=== PATIENT | female | born 1995 | race Caucasian/White ===

== ENCOUNTER 2017-09-15 16:51 | Emergency (ER) | payer MEDICAID, OTHER ==
[~2017-09-15] VITALS: Ht 160 cm; Wt 99.8 kg
[2017-09-15 17:34] LABS: BILIRUBIN,URINE NEGATIVE (NEGATIVE); CLARITY,URINE CLEAR; COLOR,URINE YELLOW; GLUCOSE, URINE (UA) NEGATIVE (NEGATIVE); KETONES,URINE NEGATIVE (NEGATIVE); LEUKOCYTE ESTERASE ,URINE 3+ (NEGATIVE); NITRITE,URINE NEGATIVE (NEGATIVE); PH,URINE 5 (5-9); PROTEIN,URINE NEGATIVE (NEGATIVE); UROBILINOGEN,URINE NORMAL (NORMAL)
[2017-09-15 17:41] LABS: BACTERIA,URINE FEW /HPF
[2017-09-15 18:37] LABS: BASOPHILS % (AUTO) 0 % (0-10); EOSINOPHILS # (AUTO) 0.2 10^3/uL (0.0-0.3); EOSINOPHILS % (AUTO) 2 % (0-10); HEMATOCRIT 38 % (35-52); HEMOGLOBIN 13.3 G/DL (11.5-16.0); LYMPHOCYTES # (AUTO) 3.6 X 10^3 (1.0-4.0); LYMPHOCYTES % (AUTO) 32 % (12-44); MEAN CORPUSCULAR HEMOGLOBIN 31 PG (25-34); MEAN CORPUSCULAR HGB CONC 35 G/DL (32-36); MEAN CORPUSCULAR VOLUME 88 FL (80-99); MEAN PLATELET VOLUME 9.9 FL (7.4-10.4); MONOCYTES # (AUTO) 0.5 X 10^3 (0.0-1.0); MONOCYTES % (AUTO) 4 % (0-12); NEUTROPHILS # (AUTO) 6.9 X 10^3 (1.8-7.8); NEUTROPHILS % (AUTO) 62 % (42-75); PLATELET COUNT 197 10^3/uL (130-400); RED BLOOD COUNT 4.33 10^6/uL (4.35-5.85); RED CELL DISTRIBUTION WIDTH 12.6 % (10.0-14.5); WHITE BLOOD COUNT 11.2 10^3/uL (4.3-11.0)
--- NOTE | 2017-09-15 18:48 | Diagnostic Imaging Report ---
PROCEDURE: US OB single fetus <14 wks. TECHNIQUE: Multiple real-time grayscale images were obtained over the gravid uterus in various projections. INDICATION: Cramping. FINDINGS: Huffman intrauterine gestation is present with a heart rate of 156 beats per minute. There is a miguel-sac subchorionic hemorrhage, measuring 2.1 x 1.5 x 0.5 cm eccentric to the right. Followup of that hemorrhage is appropriate. Septated cyst in the left ovary measured 2.4 cm. There is no pelvic free fluid. There is no evidence for extrauterine gestation. The crown-rump length of the gestation measures a length compatible with age of 7 weeks 4 days, sonographic date of confinement 04/30/2018. IMPRESSION: 7 week 4 day huffman viable IUP with small to moderate miguel-sac subchorionic hemorrhage, eccentric to the right, warrants followup. Likely involuting follicle in the left ovary. No evidence for free fluid. Dictated by: Dictated on workstation # [id number]
[2017-09-15 18:50] LABS: ALANINE AMINOTRANSFERASE 11 U/L (0-55); ALBUMIN 4.3 GM/DL (3.2-4.5); ALKALINE PHOSPHATASE 73 U/L (40-136); BILIRUBIN,TOTAL 0.3 MG/DL (0.1-1.0); BUN/CREATININE RATIO 16; CALCIUM 9.8 MG/DL (8.5-10.1); CARBON DIOXIDE 25 MMOL/L (21-32); CHLORIDE 102 MMOL/L (98-107); CREATININE SERUM 0.68 MG/DL (0.60-1.30); GFR ESTIMATED > 60; GLUCOSE 75 MG/DL (70-105); POTASSIUM 3.8 MMOL/L (3.6-5.0); SODIUM 136 MMOL/L (135-145); TOTAL PROTEIN 7.9 GM/DL (6.4-8.2)
--- NOTE | 2017-09-15 19:01 | ED GU-Female ---
General Chief Complaint: -Female Stated Complaint: CRAMPING;7WKS Nursing Triage Note: c/o vaginal spotting. States she is 7 weeks . Has appt with Dr. Conklin at [facility] in 2 weeks. Nursing Sepsis Screen: No Definite Risk Source: patient Exam Limitations: no limitations History of Present Illness Date Seen by Provider: Sep 15, 2017 Time Seen by Provider: 19:01 Initial Comments 22-year-old female patient presents to the emergency department with complaints of vaginal spotting last night. Patient states she is scheduled to see Dr. Burch at [facility] in 2 weeks. States she is approximately 7 weeks . Timing/Duration: yesterday, gone now Severity/Quality: mild, cramping Location: suprapubic, vaginal (vaginal spotting) Radiation: none Activities at Onset: none Prior Genitourinary Problems: none Sexual [place] History: less than 2 months ago, single partner Allergies and Home Medications Home Medications Nitrofurantoin Monohyd/M-Cryst 100 Mg Capsule, 1 TAB PO BID Prescribed by: JEANETTE FERRER on 09/15/171916 Constitutional: No chills, No dizziness, No fever, No malaise EENTM: no symptoms reported Respiratory: no symptoms reported Cardiovascular: no symptoms reported Gastrointestinal: No abdominal pain (suprapubic cramping last night. Denies abdominal pain today.), No constipation, No diarrhea, No nausea, No vomiting Genitourinary: see HPI, denies discharge, denies dysuria, denies frequency, denies flank pain, pain (suprapubic abdominal cramping) Musculoskeletal: no symptoms reported Skin: no symptoms reported Psychiatric/Neurological: No Symptoms Reported All Other Systemes Reviewed Negative Unless Noted: Yes (Negative excepted noted.) Past Lskctfi-Orswvw-Tmvuwu Hx Patient Social History Alcohol Use: Denies Use Recreational Drug Use: No Smoking Status: Never a Smoker Recent Foreign Travel: No Contact w/Someone Who Travel: No Recent Infectious Disease Expo: No Surgeries History of Surgeries: Yes Surgeries: Appendectomy, Gallbladder Respiratory History of Respiratory Disorde: No Cardiovascular History of Cardiac Disorders: No Neurological History of Neurological Disord: No Reproductive System : Yes Sexually Transmitted Disease: No HIV/AIDS: No Female Reproductive Disorders: Denies Genitourinary History of Genitourinary Disor: No Gastrointestinal History of Gastrointestinal Di: No Musculoskeletal History of Musculoskeletal Dis: No Endocrine History of Endocrine Disorders: No HEENT History of HEENT Disorders: No Cancer History of Cancer: No Psychosocial History of Psychiatric Problem: No Integumentary History of Skin or Integumenta: No Blood Transfusions History of Blood Disorders: No Reviewed Nursing Assessment Reviewed/Agree w Nursing PMH: Yes Family Medical History Significant Family History: No Pertinent Family Hx Physical Exam Vital Signs Vital Signs - First Documented 09/15/17 17:13 Temp 97.7 Pulse 72 Resp 16 B/P (MAP) 131/81 (98) Pulse Ox 98 O2 Delivery Room Air Capillary Refill : Less Than 3 Seconds General Appearance: WD/WN, no apparent distress HEENT: PERRL/EOMI, pharynx normal Neck: supple, normal inspection Cardiovascular: normal peripheral pulses, regular rate, rhythm, no edema, no murmur Respiratory: lungs clear, normal breath sounds, no respiratory distress, no accessory muscle use Gastrointestinal: normal bowel sounds, non tender, soft, no organomegaly, No distended Back: normal inspection, no CVA tenderness Extremities: no pedal edema, normal capillary refill Neurologic/Psychiatric: alert, normal mood/affect, oriented x 3 Skin: normal color, warm/dry Progress/Results/Core Measures Suspected Sepsis Recent Fever Within 48 Hours: No Infection Criteria Present: None New/Unexplained Altered Menta: No Sepsis Screen: No Definite Risk Sepsis Diagnosis: SIRS Temperature:97.7 Pulse: 72 Respiratory Rate: 16 Laboratory Tests 09/15/17 18:26: White Blood Count 11.2H Blood Pressure 131 /81 Mean: 98 Laboratory Tests 09/15/17 18:26: Creatinine 0.68, Platelet Count 197, Total Bilirubin 0.3 Results/Orders Lab Results Laboratory Tests Test 09/15/17 17:05 09/15/17 18:26 Range/Units Urine Color YELLOW Urine Clarity CLEAR Urine pH 5 5-9 Urine Specific Springer 1.025 H 1.016-1.022 Urine Protein NEGATIVE NEGATIVE Urine Glucose (UA) NEGATIVE NEGATIVE Urine Ketones NEGATIVE NEGATIVE Urine Nitrite NEGATIVE NEGATIVE Urine Bilirubin NEGATIVE NEGATIVE Urine Urobilinogen NORMAL NORMAL MG/DL Urine Leukocyte Esterase 3+ H NEGATIVE Urine RBC (Auto) NEGATIVE NEGATIVE Urine RBC NONE /HPF Urine WBC 10-25 H /HPF Urine Squamous Epithelial Cells 5-10 /HPF Urine Crystals NONE /LPF Urine Bacteria FEW H /HPF Urine Casts NONE /LPF Urine Mucus NEGATIVE /LPF Urine Culture Indicated YES White Blood Count 11.2 H 4.3-11.0 10^3/uL Red Blood Count 4.33 L 4.35-5.85 10^6/uL Hemoglobin 13.3 11.5-16.0 G/DL Hematocrit 38 35-52 % Mean Corpuscular Volume 88 80-99 FL Mean Corpuscular Hemoglobin 31 25-34 PG Mean Corpuscular Hemoglobin Concent 35 32-36 G/DL Red Cell Distribution Width 12.6 10.0-14.5 % Platelet Count 197 130-400 10^3/uL Mean Platelet Volume 9.9 7.4-10.4 FL Neutrophils (%) (Auto) 62 42-75 % Lymphocytes (%) (Auto) 32 12-44 % Monocytes (%) (Auto) 4 0-12 % Eosinophils (%) (Auto) 2 0-10 % Basophils (%) (Auto) 0 0-10 % Neutrophils # (Auto) 6.9 1.8-7.8 X 10^3 Lymphocytes # (Auto) 3.6 1.0-4.0 X 10^3 Monocytes # (Auto) 0.5 0.0-1.0 X 10^3 Eosinophils # (Auto) 0.2 0.0-0.3 10^3/uL Basophils # (Auto) 0.0 0.0-0.1 10^3/uL Sodium Level 136 135-145 MMOL/L Potassium Level 3.8 3.6-5.0 MMOL/L Chloride Level 102 98-107 MMOL/L Carbon Dioxide Level 25 21-32 MMOL/L Anion Gap 9 5-14 MMOL/L Blood Urea Nitrogen 11 7-18 MG/DL Creatinine 0.68 0.60-1.30 MG/DL Estimat Glomerular Filtration Rate > 60 BUN/Creatinine Ratio 16 Glucose Level 75 70-105 MG/DL Calcium Level 9.8 8.5-10.1 MG/DL Total Bilirubin 0.3 0.1-1.0 MG/DL Aspartate Amino Transf (AST/SGOT) 18 5-34 U/L Alanine Aminotransferase (ALT/SGPT) 11 0-55 U/L Alkaline Phosphatase 73 40-136 U/L Total Protein 7.9 6.4-8.2 GM/DL Albumin 4.3 3.2-4.5 GM/DL Human Chorionic Gonadotropin, Quant [id number] H <5 MIU/ML My Orders Orders - JEANETTE FERRER Cbc With Automated Diff (09/15/17 17:17) Comprehensive Metabolic Panel (09/15/17 17:17) Hcg,Quantitative (09/15/17 17:17) Ua Culture If Indicated (09/15/17 17:17) Urine Culture (09/15/17 17:05) Us Ob Single Fetus<14 [id number] (09/15/17 17:43) Vital Signs/I&O Vital Sign - Last 12Hours 09/15/17 17:13 Temp 97.7 Pulse 72 Resp 16 B/P (MAP) 131/81 (98) Pulse Ox 98 O2 Delivery Room Air Capillary Refill : Less Than 3 Seconds Blood Pressure Mean: 98 Departure Impression Impression: Primary Impression: Threatened miscarriage in early Additional Impression: Urinary tract infection Disposition: HOME, SELF-CARE Condition: Improved Departure-Patient Inst. Decision time for Depature: 19:20 Referrals: NO,LOCAL PHYSICIAN (PCP) Primary Care Physician Patient Instructions: Threatened Miscarriage (DC), Urinary Tract Infections in Adults Add. Discharge Instructions: All discharge instructions reviewed with patient and/or family. Voiced understanding. Medications as instructed. Tylenol [id number] as directed for pain if needed. Drink plenty of fluids. No intercourse, tampons, or douching. No strenuous activity until released by Dr. Burch. Follow-up with Dr. Burch this week for recheck, repeat labs, and for ordering an outpatient repeat ultrasound. Call tomorrow morning for appointment time. Return to the emergency department for worsened pain, vaginal bleeding with greater than 2 pads per hour for greater than 2 hours, vaginal discharge, fever , shortness of air, chest pain, swelling, or any other concerns. Scripts Nitrofurantoin Monohyd/M-Cryst (Macrobid 100 mg Capsule) 100 Mg Capsule 1 TAB PO BID, #14 CAP 0 Refills Prov: JEANETTE FERRER 09/15/17 Work/School Note: Work Release Form Date Seen in the Emergency Department: Sep 15, 2017 Return to Work: Sep 17, 2017 JEANETTE FERRER Sep 15, 2017 19:01
[2017-09-15] MEDS ORDERED: NITR-65 PO ×2 (19:17→20:23)
[2017-09-15 19:59] VITALS: BP 128/78
== END 2017-09-15 19:59 | disposition home or self-care (01) ==
LOC: ER 16:54
DX: O20.0 Threatened abortion (principal); O23.40 Unspecified infection of urinary tract in pregnancy, unspecified trimester; Z90.49 Acquired absence of other specified parts of digestive tract; Z3A.01 Less than 8 weeks gestation of pregnancy
CPT/HCPCS: 36415; 76801; 80053; 81000; 84702; 85025; 87088

== ENCOUNTER → 2017-09-18 | Outpatient (CLI) | payer MEDICAID ==
[~2017-09-18] MED LIST: NITR-65 PO
== END ==
LOC: LAB 15:22
PROVIDERS: ATTEND Physician Assistant
DX: O20.0 Threatened abortion (principal)
CPT/HCPCS: 36415; 84702

== ENCOUNTER 2017-11-20 12:37 | Emergency (ER) | payer MEDICAID ==
[~2017-11-20] VITALS: Ht 157.5 cm; Wt 108.9 kg
[2017-11-20] MEDS ORDERED: LACTATED RINGERS 1,000 ML IV ONE ×2 (15:24→16:11)
[2017-11-20] MEDS ORDERED: PROMETHAZINE INJ 25 MG/ML (PHENERGAN) AMP IVP STA (15:24)
[2017-11-20] MEDS ORDERED: HYOSCYAMINE 0.125 MG (LEVSIN) TAB SL ONE (15:30)
[2017-11-20 15:36] LABS: BASOPHILS % (AUTO) 0 % (0-10); EOSINOPHILS % (AUTO) 0 % (0-10); HEMATOCRIT 37 % (35-52); HEMOGLOBIN 13.3 G/DL (11.5-16.0); LYMPHOCYTES # (AUTO) 1.3 X 10^3 (1.0-4.0); LYMPHOCYTES % (AUTO) 12 % (12-44); MEAN CORPUSCULAR HEMOGLOBIN 32 PG (25-34); MEAN CORPUSCULAR HGB CONC 36 G/DL (32-36); MEAN CORPUSCULAR VOLUME 89 FL (80-99); MEAN PLATELET VOLUME 10.6 FL (7.4-10.4); MONOCYTES # (AUTO) 0.4 X 10^3 (0.0-1.0); MONOCYTES % (AUTO) 3 % (0-12); NEUTROPHILS # (AUTO) 9.4 X 10^3 (1.8-7.8); NEUTROPHILS % (AUTO) 85 % (42-75); PLATELET COUNT 145 10^3/uL (130-400); RED CELL DISTRIBUTION WIDTH 13.1 % (10.0-14.5); WHITE BLOOD COUNT 11.1 10^3/uL (4.3-11.0)
[2017-11-20 15:49] VITALS: BP_SYST 126; BP_SYST 129; BP_SYST 141; BP_DIAS 74; BP_DIAS 80; BP_DIAS 89
[2017-11-20 15:59] LABS: ALANINE AMINOTRANSFERASE 18 U/L (0-55); ALBUMIN 3.8 GM/DL (3.2-4.5); ALKALINE PHOSPHATASE 68 U/L (40-136); AMYLASE 51 U/L (25-125); BILIRUBIN,TOTAL 0.4 MG/DL (0.1-1.0); BUN/CREATININE RATIO 16; CALCIUM 9.3 MG/DL (8.5-10.1); CARBON DIOXIDE 16 MMOL/L (21-32); CHLORIDE 110 MMOL/L (98-107); CREATININE SERUM 0.56 MG/DL (0.60-1.30); GFR ESTIMATED > 60; GLUCOSE 97 MG/DL (70-105); LIPASE 11 U/L (8-78); MAGNESIUM 1.5 MG/DL (1.8-2.4); POTASSIUM 3.7 MMOL/L (3.6-5.0); SODIUM 138 MMOL/L (135-145); TOTAL PROTEIN 7.5 GM/DL (6.4-8.2)
[2017-11-20] MEDS ORDERED: MAGNESIUM OXIDE (MAG-OX)400 MG TAB PO ONE (16:15)
--- NOTE | 2017-11-20 16:19 | ED GI ---
General Chief Complaint: Abdominal/GI Problems Stated Complaint: VOMITING, 17 WEEKS , [facility] Nursing Triage Note: N/V/D ONSET MIDNOC. REPORTS SHE IS 17WKS Sepsis Screen: No Definite Risk Source of Information: Patient Exam Limitations: No Limitations History of Present Illness Date Seen by Provider: Nov 20, 2017 Time Seen by Provider: 15:15 Initial Comments PT STATES SHE BEGAN GETTING SICK AROUND MIDNIGHT HAS HAD NAUSEA/VOMITING/DIARRHEA AND INTERMITTENT GENERALIZED ABDOMINAL CRAMPING HAS BEEN VOMITING "3 TIMES EVERY HOUR" AND CANNOT KEEP ANYTHING DOWN. STATES AFTER SHE VOMITS THEN SHE WILL IMMEDIATELY DRINK POWERADE AND THEN VOMITS IT BACK UP STATES SHE HAS HAD DIARRHEA " 5-6 TIMES EVERY HOUR" STATES SHE TOOK A ZOFRAN, BUT VOMITED IT BACK UP PT STATES SHE HAS NOT VOIDED SINCE 1999 LAST PM NO FEVER NO DIZZINESS PT STATES SHE IS [address] JAQUEZ IN [facility] [place]--HAS NOT ATTEMPTED TO CONTACT HIM TODAY FOR THIS PROBLEM NO VAGINAL BLEEDING OR PELVIC PAIN/CRAMPING PT IS AB 0 NO KNOWN SICK CONTACTS OR SUSPICIOUS FOODS PCP: [facility]: [facility] Allergies and Home Medications Allergies Coded Allergies: No Known Drug Allergies (Unverified , 11/20/17) Home Medications Nitrofurantoin Monohyd/M-Cryst 100 Mg Capsule, 1 TAB PO BID Prescribed by: JEANETTE FERRER on 09/15/172022 Nitrofurantoin Monohyd/M-Cryst 100 Mg Capsule, 100 MG PO BID Prescribed by: OLLIE ORTIZ on 11/20/171751 Promethazine HCl 25 Mg Supp.rect, 25 MG RC Q4H Prescribed by: OLLIE ORTIZ on 11/20/171751 Patient Home Medication List Home Medication List Reviewed: Yes Review of Systems Constitutional: no symptoms reported EENTM: No Symptoms Reported Respiratory: No Symptoms Reported Cardiovascular: No Symptoms Reported Gastrointestinal: See HPI, Abdominal Pain (CRAMPING), Diarrhea, Nausea, Poor Appetite, Poor Fluid Intake, Vomiting Genitourinary: See HPI Musculoskeletal: no symptoms reported Skin: no symptoms reported Psychiatric/Neurological: No Symptoms Reported Endocrine: No Symptoms Reported Past Zllhhmm-Ovvbmt-Xjpiww Hx Patient Social History Alcohol Use: Denies Use Recreational Drug Use: No Smoking Status: Never a Smoker 2nd Hand Smoke Exposure: No Recent Foreign Travel: No Contact w/Someone Who Travel: No Recent Infectious Disease Expo: No Past Medical History Surgeries: Yes Appendectomy, Gallbladder Respiratory: No Cardiac: No Neurological: No Hx : 3 Hx Para: 2 Hx Total # of Abortions (Sp): 0 Female Reproductive Disorders: Denies Sexually Transmitted Disease: No HIV/AIDS: No Genitourinary: No Gastrointestinal: No Musculoskeletal: No Endocrine: No HEENT: No Cancer: No Psychosocial: No Integumentary: No Blood Disorders: No Family Medical History No Pertinent Family Hx Physical Exam Vital Signs Vital Signs - First Documented 11/20/17 14:45 Temp 97.2 Pulse 96 Resp 18 B/P (MAP) 142/80 (100) Pulse Ox 98 O2 Delivery Room Air Capillary Refill : Less Than 3 Seconds General Appearance: WD/WN, no apparent distress, obese, other (WALKS UPRIGHT AND MOVES QUICKLY WITHOUT DIFFICULTY. SITTING -STYLE DURING ER STAY) HEENT: other (ORAL MUCOSA MOIST) Neck: normal inspection Respiratory: normal breath sounds, no respiratory distress, no accessory muscle use Cardiovascular: regular rate, rhythm Gastrointestinal: normal bowel sounds, non tender, soft, other (FUNDUS JUST BELOW UMBILICUS? --DIFFICULT TO DETERMINE DUE TO BODY HABITUS) Extremities: normal inspection, no pedal edema Back: no CVA tenderness Neurologic/Psychiatric: credit verifier II-XII nml as tested, no motor/sensory deficits, alert, normal mood/affect, oriented x 3 Skin: normal color, warm/dry, tattoos/piercings (PIERCINGS) Progress/Results/Core Measures Results/Orders Lab Results Laboratory Tests Test 11/20/17 15:25 11/20/17 17:15 Range/Units White Blood Count 11.1 H 4.3-11.0 10^3/uL Red Blood Count 4.20 L 4.35-5.85 10^6/uL Hemoglobin 13.3 11.5-16.0 G/DL Hematocrit 37 35-52 % Mean Corpuscular Volume 89 80-99 FL Mean Corpuscular Hemoglobin 32 25-34 PG Mean Corpuscular Hemoglobin Concent 36 32-36 G/DL Red Cell Distribution Width 13.1 10.0-14.5 % Platelet Count 145 130-400 10^3/uL Mean Platelet Volume 10.6 H 7.4-10.4 FL Neutrophils (%) (Auto) 85 H 42-75 % Lymphocytes (%) (Auto) 12 12-44 % Monocytes (%) (Auto) 3 0-12 % Eosinophils (%) (Auto) 0 0-10 % Basophils (%) (Auto) 0 0-10 % Neutrophils # (Auto) 9.4 H 1.8-7.8 X 10^3 Lymphocytes # (Auto) 1.3 1.0-4.0 X 10^3 Monocytes # (Auto) 0.4 0.0-1.0 X 10^3 Eosinophils # (Auto) 0.0 0.0-0.3 10^3/uL Basophils # (Auto) 0.0 0.0-0.1 10^3/uL Sodium Level 138 135-145 MMOL/L Potassium Level 3.7 3.6-5.0 MMOL/L Chloride Level 110 H 98-107 MMOL/L Carbon Dioxide Level 16 L 21-32 MMOL/L Anion Gap 12 5-14 MMOL/L Blood Urea Nitrogen 9 7-18 MG/DL Creatinine 0.56 L 0.60-1.30 MG/DL Estimat Glomerular Filtration Rate > 60 BUN/Creatinine Ratio 16 Glucose Level 97 70-105 MG/DL Calcium Level 9.3 8.5-10.1 MG/DL Magnesium Level 1.5 L 1.8-2.4 MG/DL Total Bilirubin 0.4 0.1-1.0 MG/DL Aspartate Amino Transf (AST/SGOT) 14 5-34 U/L Alanine Aminotransferase (ALT/SGPT) 18 0-55 U/L Alkaline Phosphatase 68 40-136 U/L Total Protein 7.5 6.4-8.2 GM/DL Albumin 3.8 3.2-4.5 GM/DL Amylase Level 51 25-125 U/L Lipase 11 8-78 U/L Urine Color YELLOW Urine Clarity CLEAR Urine pH 6 5-9 Urine Specific Sarver 1.015 L 1.016-1.022 Urine Protein NEGATIVE NEGATIVE Urine Glucose (UA) NEGATIVE NEGATIVE Urine Ketones 2+ H NEGATIVE Urine Nitrite NEGATIVE NEGATIVE Urine Bilirubin NEGATIVE NEGATIVE Urine Urobilinogen NORMAL NORMAL MG/DL Urine Leukocyte Esterase 3+ H NEGATIVE Urine RBC (Auto) NEGATIVE NEGATIVE Urine RBC NONE /HPF Urine WBC 10-25 H /HPF Urine Squamous Epithelial Cells 10-25 H /HPF Urine Crystals NONE /LPF Urine Bacteria TRACE /HPF Urine Casts NONE /LPF Urine Mucus NEGATIVE /LPF Urine Culture Indicated YES My Orders Orders - OLLIE ORTIZ DO Saline Lock/Iv-Start (11/20/17 15:24) Monitor-Rhythm Ecg Trace Only (11/20/17 15:24) Orthostatic Vital Signs (Adult (11/20/17 15:24) Amylase (11/20/17 15:24) Cbc With Automated Diff (11/20/17 15:24) Comprehensive Metabolic Panel (11/20/17 15:24) Lipase (11/20/17 15:24) Magnesium (11/20/17 15:24) Ua Culture If Indicated (11/20/17 15:24) Promethazine Injection (Phenergan Injec (11/20/17 15:24) Hyoscyamine Sl Tablet (Levsin Sl Tablet) (11/20/17 15:30) Saline Lock/Iv-Start (11/20/17 15:24) Lactated Ringers (Lr 1000 Ml Iv Solution (11/20/17 15:24) Heart Tones (11/20/17 15:24) Stool Culture (11/20/17 15:56) Fecal Wbc (11/20/17 15:56) C Difficile Ag + Toxin A/B. (11/20/17 15:56) Magnesium Oxide Tablet (Mag Ox Tablet) (11/20/17 16:15) Saline Lock/Iv-Start (11/20/17 16:11) Lactated Ringers (Lr 1000 Ml Iv Solution (11/20/17 16:11) Urine Culture (11/20/17 17:15) Rx-Nitrofurantoin [place] (Rx-Macrobid) (11/20/17 17:49) Rx-Promethazine Hcl (Rx-Phenergan Supp) (11/20/17 17:52) Medications Given in ED Current Medications Medications Dose Ordered Sig/[place] Route Start Time Stop Time Status Last Admin Dose Admin Hyoscyamine Sulfate 0.25 mg ONCE ONCE SL 11/20/17 15:30 11/20/17 15:31 DC 11/20/17 15:58 0.25 MG Lactated Ringer's 1,000 ml @ 0 mls/hr Q0M ONCE IV 11/20/17 15:24 11/20/17 15:27 DC 11/20/17 15:58 1,000 MLS/HR Lactated Ringer's 1,000 ml @ 0 mls/hr Q0M ONCE IV 11/20/17 16:11 11/20/17 16:12 DC 11/20/17 16:29 1,000 MLS/HR Magnesium Oxide 400 mg ONCE ONCE PO 11/20/17 16:15 11/20/17 16:16 DC 11/20/17 16:30 400 MG Vital Signs/I&O 11/20/17 11/20/17 14:45 15:49 Temp 97.2 Pulse 96 97 99 102 Resp 18 B/P (MAP) 142/80 (100) 126/80 (95) 129/89 (102) 141/74 (96) Pulse Ox 98 O2 Delivery Room Air Blood Pressure Mean: 96 Progress Progress Note : Progress Note PT FEELS MUCH BETTER AT DISMISSAL, PT VOIDED X 2 DURING ER STAY PT HAD 1 DIARRHEA STOOL--STOOL STUDIES ORDERED PT DRINKING WATER AND EATING CRACKERS WITHOUT DIFFICULTY PRIOR TO DISMISSAL. Departure Impression Primary Impression: Gastroenteritis Additional Impressions: 17 weeks gestation of Dehydration Hypomagnesemia Urinary tract infection Disposition: HOME, SELF-CARE Condition: Improved Departure-Patient Inst. Referrals: NO,LOCAL PHYSICIAN (PCP/Family) Primary Care Physician Patient Instructions: [id number], Urinary Tract Infection, Adult (DC) Add. Discharge Instructions: CLEAR LIQUIDS--WATER, BROTH, JELLO, GATORADE BRATS DIET--BANANAS, RICE, APPLESAUCE, TOAST, SALTINES TYLENOL NEEDED FOR PAIN FOLLOW UP WITH YOUR OB DR. ON WEDNESDAY FOR FURTHER CARE RETURN TO ER IF WORSE All discharge instructions reviewed with patient and/or family. Voiced understanding. Scripts Promethazine HCl (Phenergan) 25 Mg Supp.rect 25 MG RC Q4H for Nausea/Vomiting, #5 SUPP.RECT Prov: OLLIE ORTIZ DO 11/20/17 Nitrofurantoin Monohyd/M-Cryst (Macrobid 100 mg Capsule) 100 Mg Capsule 100 MG PO BID, #20 CAP Prov: OLLIE ORTIZ DO 11/20/17 OLLIE ORTIZ DO Nov 20, 2017 16:19
[2017-11-20 17:39] LABS: BILIRUBIN,URINE NEGATIVE (NEGATIVE); CLARITY,URINE CLEAR; COLOR,URINE YELLOW; GLUCOSE, URINE (UA) NEGATIVE (NEGATIVE); KETONES,URINE 2+ (NEGATIVE); LEUKOCYTE ESTERASE ,URINE 3+ (NEGATIVE); NITRITE,URINE NEGATIVE (NEGATIVE); PH,URINE 6 (5-9); PROTEIN,URINE NEGATIVE (NEGATIVE); UROBILINOGEN,URINE NORMAL (NORMAL)
[2017-11-20 17:47] LABS: BACTERIA,URINE TRACE /HPF
[2017-11-20] MEDS ORDERED: RX-NITROFURANTOIN 100 MG (MACROBID) CAP PPK#2 PO STA (17:49)
[2017-11-20] MEDS ORDERED: PROM25SU43 RC (17:52)
[2017-11-20] MEDS ORDERED: NITR-65 PO (17:52)
[2017-11-20] MEDS ORDERED: RX-PHENERGAN 25 MG SUPP PPK#3 PR STA (17:52)
[2017-11-20] MEDS ORDERED: RX-PHENERGAN 25 MG SUPP PPK#3 ONE (18:01)
[2017-11-20] MEDS ORDERED: RX-NITROFURANTOIN 100 MG (MACROBID) CAP PPK#2 PO ONE (18:01)
[2017-11-20 18:22] VITALS: BP 141/74
== END 2017-11-20 18:22 | disposition home or self-care (01) ==
LOC: EDUNIT# 12:37 → ER 12:40
DX: O99.612 Diseases of the digestive system complicating pregnancy, second trimester (principal); K52.9 Noninfective gastroenteritis and colitis, unspecified; O99.282 Endocrine, nutritional and metabolic diseases complicating pregnancy, second trimester; E86.0 Dehydration; E83.42 Hypomagnesemia; O23.42 Unspecified infection of urinary tract in pregnancy, second trimester; Z90.49 Acquired absence of other specified parts of digestive tract; Z3A.17 17 weeks gestation of pregnancy
CPT/HCPCS: 36415; 80053; 81000; 82150; 83690; 83735; 85025; 87045; 87046; 87088; 87324; 87449; 89055; 93041; 96361; 96374

== ENCOUNTER 2019-11-29 07:00 | Emergency (ER) | payer BC, MEDICAID ==
[~2019-11-29] VITALS: Ht 160 cm; Wt 100.0 kg
[~2019-11-29 07:00] MED LIST changes: +PROM25SU43 RC
--- OUTSIDE RECORDS SUMMARY | 2019-11-29 07:06 | XMS REPORT ---
Author Author Sue BARAJAS Organization [facility] Address [address] [place] [address] Care Team Providers Care Adult Education Manager Name Role Phone JOSE G BARAJAS Unavailable PROBLEMS Type Condition ICD9-CM Code AUX38-RH Code Onset Dates Condition S tatus SNOMED Code Problem Morbid obesity due to excess calories E66.01 Active [id number] ALLERGIES No Known Allergies ENCOUNTERS Encounter Location Date Diagnosis [facility] [id number] [place] [id number] 16 Jan, 2018 Sore throat J02.9 ; Strep th roat exposure Z20.818 and BMI 45.0-49.9, adult Z68.42 [facility] [address] [id number] 16 Nov, 2016 Morbid obesity due to excess calories E66.01 [place] [address] [id number] 14 Nov, 2016 Morbid obesity due to excess calories E66.01 [place] [address] [id number] 13 Nov, 2016 Morbid obesity due to excess calories E66.01 [facility] [id number] [place] [id number] October, Nexplanon removal Z30.46 IMMUNIZATIONS No Known Immunizations SOCIAL HISTORY Never Assessed REASON FOR VISIT sore throat started this morning JStrasserRN PLAN OF CARE Activity Details Follow Up 1 Week, prn Reason:if sympto ms worsen VITAL SIGNS Height 63 in 2018-02-03 Weight 257.6 lbs 2018-02-03 Heart Rate 96 bpm 2018-02-03 Respiratory Rate 22 2018-02-03 BMI 45.63 kg/m2 2018-02-03 Blood pressure systolic 120 mmHg 2018-02-03 Blood pressure diastolic 76 mmHg 2018-02-03 MEDICATIONS Medication Instructions Dosage Frequency Start Date End Date Duration S marbin Amoxicillin 500 mg Orally every 12 hrs 1 capsule 12h Jan, 8 Jan, 10 day(s) Active RESULTS Name Result Date Reference Range STREP A (IN HOUSE) 2018-02-03 STREP A negative Control + Lot # [id number] Exp date 2020-04-05 PROCEDURES Procedure Date Ordered Result Body Site STREP A ASSAY W/OPTIC Feb 03, 2018 INSTRUCTIONS MEDICATIONS ADMINISTERED No Known Medications MEDICAL (GENERAL) HISTORY Type Description Date Surgical History cholecystectomy Surgical History appendectomy
--- OUTSIDE RECORDS SUMMARY | 2019-11-29 07:07 | XMS REPORT | Continuity of Care Document ---
Author Organization Unknown Address Unknown Phone Unavailable Allergies Active Description Code Type Severity Reaction Onset Reported/Identified Relationship to Patient Clinical Status Yes No Known Drug Allergies [id number] Drug Allergy Unknown N/A 11/20/2017 Medications There is no data. Problems Date Dx Coded Attending Type Code Diagnosis Diagnosed By 09/15/2017 JEANETTE RENDON Ot O20.0 THREATENED 09/15/2017 JEANETTE RENDON Ot O20.9 HEMORRHAGE IN EARLY , UNSPECIFI 09/15/2017 JEANETTE RENDON Ot O23.40 UNSP INFECTION OF URINARY TRACT IN PREGN 09/15/2017 JEANETTE RENDON Ot Z3A.01 LESS THAN 8 WEEKS GESTATION OF 09/15/2017 JEANETTE RENDON Ot Z90.49 ACQUIRED ABSENCE OF OTHER SPECIFIED PART 09/17/2017 JEANETTE RENDON Ot O20.0 THREATENED 09/17/2017 JEANETTE RENDON Ot O20.9 HEMORRHAGE IN EARLY , UNSPECIFI 09/17/2017 JEANETTE RENDON Ot O23.40 UNSP INFECTION OF URINARY TRACT IN PREGN 09/17/2017 JEANETTE RENDON Ot Z3A.01 LESS THAN 8 WEEKS GESTATION OF 09/17/2017 JEANETTE RENDON Ot Z90.49 ACQUIRED ABSENCE OF OTHER SPECIFIED PART 11/20/2017 ANGEL DO OLLIE K Ot E83.42 HYPOMAGNESEMIA 11/20/2017 ANGEL DO OLLIE K Ot E86.0 DEHYDRATION 11/20/2017 ANGEL FREDERICK OLLIE K Ot K52.9 NONINFECTIVE GASTROENTERITIS AND COLITIS 11/20/2017 ANGEL DO OLLIE K Ot O23.42 UNSP INFCT OF URINARY TRACT IN 11/20/2017 ANGEL FREDERICK OLLIE K Ot O99.282 ENDO, NUTRITIONAL AND METAB DISEASES COM 11/20/2017 ANGEL FREDERICK OLLIE K Ot O99.612 DISEASES OF THE DGSTV SYS COMP 11/20/2017 ANGEL OLLIE FREDERICK Ot R11.2 NAUSEA WITH VOMITING, UNSPECIFIED 11/20/2017 ANGEL OLLIE FREDERICK Ot Z3A.17 17 WEEKS GESTATION OF 11/20/2017 OLLIE ORTIZ DO Ot Z90.49 ACQUIRED ABSENCE OF OTHER SPECIFIED PART 11/22/2017 ANGEL TUSHAR FREDERICKA K Ot E83.42 HYPOMAGNESEMIA 11/22/2017 ANGEL TUSHAR FREDERICKA K Ot E86.0 DEHYDRATION 11/22/2017 ANGEL OLLIE FREDERICK K Ot K52.9 NONINFECTIVE GASTROENTERITIS AND COLITIS 11/22/2017 ANGEL TUSHAR FREDERICKA K Ot O23.42 UNSP INFCT OF URINARY TRACT IN 11/22/2017 OLLIE ORTIZ DO K Ot O99.282 ENDO, NUTRITIONAL AND METAB DISEASES COM 11/22/2017 OLLIE ORTIZ DO K Ot O99.612 DISEASES OF THE DGSTV SYS COMP 11/22/2017 OLLIE ORTIZ DO Ot R11.2 NAUSEA WITH VOMITING, UNSPECIFIED 11/22/2017 OLLIE ORTIZ DO Ot Z3A.17 17 WEEKS GESTATION OF 11/22/2017 OLLIE ORTIZ DO Ot Z90.49 ACQUIRED ABSENCE OF OTHER SPECIFIED PART 04/07/2018 JEANETTE RENDON Ot O20.0 THREATENED 04/07/2018 JEANETTE RENDON Ot O20.0 THREATENED 05/20/2018 JEANETTE RENDON Ot O20.0 THREATENED Procedures There is no data. Results Test Result Range Lipid Panel - 12/02/16 10:21 Cholesterol, Total 163 mg/dL 100-199 Triglycerides 143 mg/dL 0-149 HDL Cholesterol 41 mg/dL >39 VLDL Cholesterol Jarrett 29 mg/dL 5-40 LDL Cholesterol Calc 93 mg/dL 0-99 Hemoglobin A1c - 12/02/16 10:21 Hemoglobin A1c 5.0 % 4.8-5.6 Complete urinalysis with reflex to cultu re - 09/15/17 17:05 Urine color determination YELLOW NRG Urine clarity determination CLEAR NR G Urine pH measurement by test strip 5 5-9 Specific gravity of urine by test strip 1.025 1.016-1.022 Urine protein assay by test strip, semi-quantitative NEGATIVE NEGATIVE Urine glucose detection by automated test strip NE GATIVE NEGATIVE Erythrocytes detection in urine sediment by light micr oscopy NEGATIVE NEGATIVE Urine ketones detection by automated test strip NE GATIVE NEGATIVE Urine nitrite detection by test strip NEGATIVE NEGATIVE Urine total bilirubin detection by test strip NEGA TIVE NEGATIVE Urine urobilinogen measurement by automated test strip (mass/volume) NORMAL NORMAL Urine leukocyte esterase detection by dipstick 3+ NEGATIVE Automated urine sediment erythrocyte cou nt by microscopy (number/high power field) NONE NRG Automated urine sediment leukocyte count by microscopy (number/high power field) [HPF] NRG Bacteria detection in urine sediment by light microsco py FEW NRG Squamous epithelial cells detection in u rine sediment by light microscopy 5-10 NRG Crystals detection in urine sediment by light microsco py NONE NRG Casts detection in urine sediment by light microscopy NONE NRG Mucus detection in urine sediment by light microscopy NEGATIVE NRG Complete urinalysis with reflex to culture YES NRG Bacterial urine culture - 09/15/17 17:05 URINE CULTURE RESULTS <10,000/ML NRG Complete blood count (CBC) with automate d white blood cell (WBC) differential - 09/15/17 18:26 Blood leukocytes automated count (number/volume) 11.2 10*3/uL 4.3-11.0 Blood erythrocytes automated count (number/volume) 4.33 10*6/uL 4.35-5.85 Venous blood hemoglobin measurement (mass/volume) 13.3 g/dL 11.5-16.0 Blood hematocrit (volume fraction) 38 % 35-52 Automated erythrocyte mean corpuscular volume 88 [ foz_us] 80-99 Automated erythrocyte mean corpuscular h emoglobin (mass per erythrocyte) 31 pg 25-34 Automated erythrocyte mean corpuscular h emoglobin concentration measurement (mass/volume) 35 g/dL 32-36 Automated erythrocyte distribution width ratio 12. 6 % 10.0- 14.5 Automated blood platelet count (count/volume) 197 10*3/uL 130-400 Automated blood platelet mean volume measurement 9.9 [foz_us] 7.4-10.4 Automated blood neutrophils/100 leukocytes 62 % 42-75 Automated blood lymphocytes/100 leukocytes 32 % 12-44 Blood monocytes/100 leukocytes 4 % 0-12 Automated blood eosinophils/100 leukocytes 2 % 0-10 Automated blood basophils/100 leukocytes 0 % 0-10 Blood neutrophils automated count (number/volume) 6.9 10*3 1.8-7.8 Blood lymphocytes automated count (number/volume) 3.6 10*3 1.0-4.0 Blood monocytes automated count (number/volume) 0. 5 10*3 0.0-1.0 Automated eosinophil count 0.2 10*3/uL 0 .0-0.3 Automated blood basophil count (count/volume) 0.0 10*3/uL 0.0-0.1 Comprehensive metabolic panel - 09/15/17 18:26 Serum or plasma sodium measurement (moles/volume) 136 mmol/L 135-145 Serum or plasma potassium measurement (moles/volume) 3.8 mmol/L 3.6-5.0 Serum or plasma chloride measurement (moles/volume) 102 mmol/L 98-107 Carbon dioxide 25 mmol/L 21-32 Serum or plasma anion gap determination (moles/volume) 9 mmol/L 5-14 Serum or plasma urea nitrogen measurement (mass/volume ) 11 mg/dL 7-18 Serum or plasma creatinine measurement (mass/volume) 0.68 mg/dL 0.60-1.30 Serum or plasma urea nitrogen/creatinine mass ratio 16 NRG Serum or plasma creatinine measurement w ith calculation of estimated glomerular filtration rate > NRG Serum or plasma glucose measurement (mass/volume) 75 mg/dL 70-105 Serum or plasma calcium measurement (mass/volume) 9.8 mg/dL 8.5-10.1 Serum or plasma total bilirubin measurement (mass/volu me) 0.3 mg/dL 0.1-1.0 Serum or plasma alkaline phosphatase lalit surement (enzymatic activity/volume) 73 U/L 40-136 Serum or plasma aspartate aminotransfera se measurement (enzymatic activity/volume) 18 U/L 5-34 Serum or plasma alanine aminotransferase measurement (enzymatic activity/volume) 11 U/L 0-55 Serum or plasma protein measurement (mass/volume) 7.9 g/dL 6.4-8.2 Serum or plasma albumin measurement (mass/volume) 4.3 g/dL 3.2-4.5 Serum or plasma choriogonadotropin measu rement (units/volume) - 09/15/17 18:26 Serum or plasma choriogonadotropin measurement (units/ volume) 35118 m[iU]/mL <5 Serum or plasma choriogonadotropin measu rement (units/volume) - 09/18/17 15:39 Serum or plasma choriogonadotropin measurement (units/ volume) 78854 m[iU]/mL <5 Complete blood count (CBC) with automate d white blood cell (WBC) differential - 11/20/17 15:25 Blood leukocytes automated count (number/volume) 11.1 10*3/uL 4.3-11.0 Blood erythrocytes automated count (number/volume) 4.20 10*6/uL 4.35-5.85 Venous blood hemoglobin measurement (mass/volume) 13.3 g/dL 11.5-16.0 Blood hematocrit (volume fraction) 37 % 35-52 Automated erythrocyte mean corpuscular volume 89 [ foz_us] 80-99 Automated erythrocyte mean corpuscular h emoglobin (mass per erythrocyte) 32 pg 25-34 Automated erythrocyte mean corpuscular h emoglobin concentration measurement (mass/volume) 36 g/dL 32-36 Automated erythrocyte distribution width ratio 13. 1 % 10.0- 14.5 Automated blood platelet count (count/volume) 145 10*3/uL 130-400 Automated blood platelet mean volume measurement 10.6 [foz_us] 7.4-10.4 Automated blood neutrophils/100 leukocytes 85 % 42-75 Automated blood lymphocytes/100 leukocytes 12 % 12-44 Blood monocytes/100 leukocytes 3 % 0-12 Automated blood eosinophils/100 leukocytes 0 % 0-10 Automated blood basophils/100 leukocytes 0 % 0-10 Blood neutrophils automated count (number/volume) 9.4 10*3 1.8-7.8 Blood lymphocytes automated count (number/volume) 1.3 10*3 1.0-4.0 Blood monocytes automated count (number/volume) 0. 4 10*3 0.0-1.0 Automated eosinophil count 0.0 10*3/uL 0 .0-0.3 Automated blood basophil count (count/volume) 0.0 10*3/uL 0.0-0.1 Comprehensive metabolic panel - 11/20/17 15:25 Serum or plasma sodium measurement (moles/volume) 138 mmol/L 135-145 Serum or plasma potassium measurement (moles/volume) 3.7 mmol/L 3.6-5.0 Serum or plasma chloride measurement (moles/volume) 110 mmol/L 98-107 Carbon dioxide 16 mmol/L 21-32 Serum or plasma anion gap determination (moles/volume) 12 mmol/L 5-14 Serum or plasma urea nitrogen measurement (mass/volume ) 9 mg/dL 7-18 Serum or plasma creatinine measurement (mass/volume) 0.56 mg/dL 0.60-1.30 Serum or plasma urea nitrogen/creatinine mass ratio 16 NRG Serum or plasma creatinine measurement w ith calculation of estimated glomerular filtration rate > NRG Serum or plasma glucose measurement (mass/volume) 97 mg/dL 70-105 Serum or plasma calcium measurement (mass/volume) 9.3 mg/dL 8.5-10.1 Serum or plasma total bilirubin measurement (mass/volu me) 0.4 mg/dL 0.1-1.0 Serum or plasma alkaline phosphatase lalit surement (enzymatic activity/volume) 68 U/L 40-136 Serum or plasma aspartate aminotransfera se measurement (enzymatic activity/volume) 14 U/L 5-34 Serum or plasma alanine aminotransferase measurement (enzymatic activity/volume) 18 U/L 0-55 Serum or plasma protein measurement (mass/volume) 7.5 g/dL 6.4-8.2 Serum or plasma albumin measurement (mass/volume) 3.8 g/dL 3.2-4.5 Magnesium - 11/20/17 15:25 Magnesium 1.5 mg/dL 1.8-2.4 Serum or plasma amylase measurement (enz ymatic activity/volume) - 11/20/17 15:25 Serum or plasma amylase measurement (enzymatic activit y/volume) 51 U/L 25-125 Lipase - 11/20/17 15:25 Lipase 11 U/L 8-78 C DIFFICILE AG + TOXIN A/B. - 11/20/17 1 5:45 RESULTS NEGATIVE FOR ANTIGEN AND TOXIN A/B NRG Stool leukocytes detection by light micr oscopy - 11/20/17 15:45 FECAL WBC RESULTS NEGATIVE FOR WBC'S NR G FECAL NOTE FECAL LEUKOCYTES MAY BE INTE RMITTENTLY PRESENT OR NRG FECAL NOTE UNEVENLY DISTRIBUTED IN STOO L SPECIMENS, AND WBC NRG FECAL NOTE MORPHOLOGY DEGRADES DURING TRANSPORT NRG FECAL NOTE NOTE: NRG Stool bacteria identification by culture - 11/20/17 15:45 Stool bacteria identification by culture N2 NRG Complete urinalysis with reflex to cultu re - 11/20/17 17:15 Urine color determination YELLOW NRG Urine clarity determination CLEAR NR G Urine pH measurement by test strip 6 5-9 Specific gravity of urine by test strip 1.015 1.016-1.022 Urine protein assay by test strip, semi-quantitative NEGATIVE NEGATIVE Urine glucose detection by automated test strip NE GATIVE NEGATIVE Erythrocytes detection in urine sediment by light micr oscopy NEGATIVE NEGATIVE Urine ketones detection by automated test strip 2+ NEGATIVE Urine nitrite detection by test strip NEGATIVE NEGATIVE Urine total bilirubin detection by test strip NEGA TIVE NEGATIVE Urine urobilinogen measurement by automated test strip (mass/volume) NORMAL NORMAL Urine leukocyte esterase detection by dipstick 3+ NEGATIVE Automated urine sediment erythrocyte cou nt by microscopy (number/high power field) NONE NRG Automated urine sediment leukocyte count by microscopy (number/high power field) [HPF] NRG Bacteria detection in urine sediment by light microsco py TRACE NRG Squamous epithelial cells detection in u rine sediment by light microscopy 10-25 NRG Crystals detection in urine sediment by light microsco py NONE NRG Casts detection in urine sediment by light microscopy NONE NRG Mucus detection in urine sediment by light microscopy NEGATIVE NRG Complete urinalysis with reflex to culture YES NRG Bacterial urine culture - 11/20/17 17:15 Bacterial urine culture RML NRG COLONY COUNT . NRG HPV mRNA E6/E7, SUREPATH VIAL - 10/05/19 13:35 HPV mRNA E6/E7, SUREPATH VIAL Detected NOT DETECTED SUREPATH PAP RFX HPV mRNA E6/E7 - 13:35 CLINICAL INFORMATION: NR LMP: NRG PREV. PAP: NRG PREV. BX: NRG SOURCE: Cervix NR STATEMENT OF ADEQUACY: NR INTERPRETATION/RESULT: NR ASSEMBLER INSTALLER GENERAL: NR GENERAL CATEGORIZATION: NR COMMENT: [facility] PATHOLOGIST: [facility] [place] COMMENT [facility] [place] BLOOD TPYE/RH FACTOR - 10/05/19 14:00 ABO GROUP A NRG RH TYPE RH(D) POSITIVE NRG ANTIBODY SCREEN - 10/05/19 14:00 ANTIBODY SCREEN, RBC W/REFL ID, TITER AND AG NO ANTIBODIES DETECTED NRG SYPHILIS (RPR W/ REFLEX CONFIRMATION) - 10/05/19 14:00 RPR (DX) W/REFL TITER AND CONFIRMATORY TESTING NON-REACTIVE NON-REACTIVE RUBELLA IMMUNE STATUS - 10/05/19 14:00 RUBELLA ANTIBODY (IGG) 5.21 index NRG GC/CHLAMYDIA (SWAB OR URINE)-RAPID - 11:26 CHLAMYDIA TRACHOMATIS RNA, TMA NOT DETECTED NOT DETECTED NEISSERIA GONORRHOEAE RNA, TMA NOT DETECTED NOT DETECTED COMMENT NRG Encounters ACCT No. Visit Date/Time Discharge Status Pt. Type Provider Facility Loc./Unit Complaint [id number] 10/19/2019 11:30:00 10/19/2019 23:59: 59 CLS Out[facility] [id number] 10/19/2019 11:30:00 Document Registration [id number] 10/05/2019 13:30:00 Document Registration [id number] 12/03/2016 12:08:00 Document Registration [id number] 11/20/2017 12:40:00 018 18:22:00 DIS Emergency OLLIE ORTIZ DO [facility] ER VOMITING, 17 WEEKS PREG RAÚL CRUZ [id number] 09/18/2017 15:22:00 018 23:59:59 CLS Outpatient JEANETTE RENDON [facility] LAB THREATENED [place]ISC [place] [id number] 09/15/2017 16:54:00 018 19:59:00 DIS Emergency JEANETTE RENDON [facility] ER CRAMPING;7WKS
--- NOTE | 2019-11-29 08:35 | ED EENT ---
History of Present Illness General Chief Complaint: Oral/Throat Problems Stated Complaint: MOUTH INFECTION Nursing Triage Note: AMB TO ROOM REPORTS HAS COLD SORES ON MOUTH SINCE WEDNESDAY WAS CALLED IN [address] UNSURE WHAT THEY WAS. CONCERN BECAUSE IT IS GETTING WORSE AND SHE IS APX 16WEEKS PREG AND NOT FELT BABY MOVE IN 24 HOURS Source: patient Exam Limitations: no limitations (EMILY CASTRO MD) Source: patient Exam Limitations: no limitations (CANDICE VERA,MED STUDENT) History of Present Illness Date Seen by Provider: Nov 29, 2019 Time Seen by Provider: 08:05 Initial Comments Mrs. Donnelly is a 16.5 weeks gestation female that presents to the ED with complaints of mouth pain and lesion. She first noticed a cold sore when she woke up on Wednesday morning. Since that time she has developed some left sided facial edema, ear pain, and an increase in the number of lesions. The lesions are along her left upper and lower lip. She expresses some difficulty with eating and drinking due to a sore throat. She denies fever, chest pain, shortness of breath, decreased appetite, or tooth pain. She is receiving obstetrical care from Dr. Burch. She called his office on Wednesday with the previously mentioned complaints and was prescribed valtrex and acyclovir which she has been using as directed. She has been taking OTC Tylenol for the facial pain and headache with limited relief. Mrs. Donnelly states she has not felt the baby move in about 24 hours but previous to that she was feeling movement. She has noticed a decrease in fluid and food intake over the last 1.5 days due to pain when swallowing. In the past she has had single cold sores but they have never worsened to this degree. She does admit to some increase in sun exposure on Wednesday. Previous pregnancies were full term, 1 complicated by gestational HTN. She has had some nausea throughout this but states it is otherwise unremarkable. Her next routine OB f/u appointment is scheduled for tomorrow with Dr. Burch. Timing/Duration: gradual Severity: mild Location: facial (left) Prearrival Treatment: prescription meds Associated Symptoms: No change in hearing, No cough, No ear drainage; facial pain/swelling; No fever, No malaise, No nasal congestion/drainage; poor fluid intake, poor solids intake; No sinus infection; sore throat; No tooth pain (CANDICE VERA MED STUDENT) Allergies and Home Medications Allergies Coded Allergies: No Known Drug Allergies (Unverified , 11/20/17) Home Medications Cephalexin 500 Mg Capsule, 500 MG PO QID Prescribed by: EMILY CORONA on 11/29/19 08 Nitrofurantoin Monohyd/M-Cryst 100 Mg Capsule, 1 TAB PO BID Prescribed by: JEANETTE FERRER on 09/15/172022 Nitrofurantoin Monohyd/M-Cryst 100 Mg Capsule, 100 MG PO BID Prescribed by: OLLIE ORTIZ on 11/20/171751 Promethazine HCl 25 Mg Supp.rect, 25 MG RC Q4H Prescribed by: OLLIE ORTIZ on 11/20/17 175 [Viscous Lidocaine] , 5 ML PO Q4H PRN for PAIN-MODERATE (5-7) Prescribed by: EMILY CORONA on 11/29/19842 Patient Home Medication List Home Medication List Reviewed: Yes (CANDICE VERA MED STUDENT) Review of Systems Review of Systems Constitutional: No chills, No fever Eyes: No Symptoms Reported Ears: Denies Dizziness; Pain (left); Denies Purulent Discharge, Denies Previous Injury Nose: denies congestion, denies pain Mouth: see HPI Throat: see HPI Respiratory: no symptoms reported Cardiovascular: no symptoms reported Gastrointestinal: No abdominal pain, No constipation, No diarrhea, No heartburn; nausea; No vomiting : Yes (16.5 week) Musculoskeletal: no symptoms reported Skin: lesions (left upper and lower lip) Neurological: Headache Immunological/Allergic: no symptoms reported (CANDICE VERA MED STUDENT) Past Wixejxy-Vqpeym-Ymdwhb Hx Patient Social History Alcohol Use: Denies Use Recreational Drug Use: No Smoking Status: Never a Smoker 2nd Hand Smoke Exposure: No Recent Foreign Travel: No Contact w/Someone Who Travel: No Recent Infectious Disease Expo: No (EMILY CASTRO MD) Alcohol Use: Denies Use Recreational Drug Use: No Smoking Status: Never a Smoker (CANDICE VERA MED STUDENT) Past Medical History Surgeries: Yes Appendectomy, Gallbladder Respiratory: No Cardiac: No Neurological: No Female Reproductive Disorders: Denies Sexually Transmitted Disease: No HIV/AIDS: No Genitourinary: No Gastrointestinal: No Musculoskeletal: No Endocrine: No HEENT: No Cancer: No Psychosocial: No Integumentary: No Blood Disorders: No (EMILY CASTRO MD) Surgeries: Yes Appendectomy, Gallbladder Respiratory: No Neurological: No : Yes (16.5 wk) Hx : 4 Hx Para: 3 Hx Total # of Abortions (Sp): 0 Genitourinary: No Gastrointestinal: No Musculoskeletal: No Endocrine: No HEENT: No Hearing Impairment: Denies Psychosocial: No (CANDICE VERA MED STUDENT) Family Medical History No Pertinent Family Hx (EMILY CASTRO MD) No Pertinent Family Hx (CANDICE VERA MED STUDENT) Physical Exam Vital Signs Vital Signs - First Documented 11/29/19 07:53 Temp 36.9 Pulse 77 Resp 18 B/P (MAP) 148/98 (115) Pulse Ox 100 (CANDICE VERA MED STUDENT) Height, Weight, BMI Height: 5'2.00" Weight: 240lbs. oz. 108.572743dv; 39.00 BMI Method:Stated (EMILY CASTRO MD) General Appearance: WD/WN, no apparent distress Eyes: bilateral eye PERRL, bilateral eye EOMI Ears: left ear tenderness; bilateral ear auricle normal, bilateral ear canal normal, bilateral ear TM normal Nose: normal inspection Mouth/Throat: normal mouth inspection, pharynx normal; No dental tenderness, No maxillary swelling, No tongue swollen, No tonsillar swelling Neck: non-tender, full range of motion, supple Cardiovascular: regular rate, rhythm, no murmur Respiratory: chest non-tender, lungs clear, normal breath sounds, no respir atory distress, no accessory muscle use Gastrointestinal: normal bowel sounds, non tender, soft Neurologic/Psychiatric: alert, normal mood/affect, oriented x 3 Skin: other (crusting, dry lesions over left upper and lower lip, some slight erythema to left face, very minimal erythema over left cheek ) (CANDICE VERA MED STUDENT) Progress/Results/Core Measures Results/Orders Vital Signs/I&O 11/29/19 11/29/19 07:53 09:00 Temp 36.9 36.9 Pulse 77 77 Resp 18 18 B/P (MAP) 148/98 (115) 148/98 (115) Pulse Ox 100 100 (CANDICE VERA MED STUDENT) Blood Pressure Mean: 115 Progress Progress Note : Time: 08:55 Progress Note Discussed risk vs benefit of beginning antibiotic. She voiced she would like to get prescription printed and discuss with Dr. Burch at her OB f/u appointment tomorrow. Continue Tylenol prn for pain and antiviral medication previously prescribed. Heart tones 139-154 (CANDICE VERA,MED STUDENT) Departure Impression Primary Impression: Oral herpes simplex infection Additional Impressions: Sore throat Qualified Codes: Z3A.16 - 16 weeks gestation of Disposition: 01 HOME, SELF-CARE Condition: Stable Departure-Patient Inst. Decision time for Depature: 08:37 (EMILY CASTRO MD) Referrals: NO,LOCAL PHYSICIAN (PCP/Family) Primary Care Physician Patient Instructions: Cold Sores (Oral Herpes) Add. Discharge Instructions: Continue taking the antiviral medications as previously prescribed. If symptoms are not improving or are worsening, you may start the antibiotic as prescribed. Complete the entire course of antibiotics if you start them. You may also use the viscous lidocaine gargled and swallowed to help with your throat pain. Eat and drink very carefully after using the viscous lidocaine as it will numb your tongue, lips, and throat. You may continue using Tylenol (acetaminophen) up to 1000 mg every 6 hours as needed. Call your doctor or return to care if you have worsening symptoms. All discharge instructions reviewed with patient and/or family. Voiced understanding. Scripts [Viscous Lidocaine] No Conflict Check 5 ML PO Q4H PRN for PAIN-MODERATE (5-7), #60 ML Prov: EMILY CASTRO MD 11/29/19 Cephalexin (Keflex) 500 Mg Capsule 500 MG PO QID, #20 CAP Prov: EMILY CASTRO MD 11/29/19 This patient was seen, examined, and interviewed by me personally along with Candice Vera, MS4. I agree with her history, physical, assessment, and documentation with the following additions. This patient presents with a herpetic appearing cluster of crusted lesions on the left upper and lower lip. Pain radiates down to the throat and ear. There is pain with swallowing. She has been taking antivirals for about 3 days. She is afebrile and vital signs are within normal limits. Exam: HEENT: Tympanic membranes normal, crusted lesions on the left upper and lower lip, oropharynx normal Neck: Mild lymphadenopathy, supple Heart: Regular rate and rhythm without murmur Lungs: Clear to auscultation bilaterally Abdomen: heart tones 130s to 150s by Doppler Extremities: Normal to inspection Neuro/psych: Alert, oriented, no gross focal deficits Patient is noted to have some healing and peeling sunburn on her nose. The involved surfaces of her lips are on the more superior aspects suggesting that this outbreak was partially triggered by sun exposure. With the spread of pain to the ear and throat, there is some concern for possible secondary bacterial infection. Patient was provided a prescription for Keflex. She was also provided prescription for viscous lidocaine and provided with appropriate warnings about numbness of the lips, throat, and tongue. (EMILY CASTRO MD) Copy Copies To 1: DILLON BURCH JOSHUA T MD Nov 29, 2019 08:35 CANDICE VERA,MED STUDENT Nov 29, 2019 09:05
[2019-11-29] MEDS ORDERED: Viscous Lidocaine PO (08:43)
[2019-11-29] MEDS ORDERED: CEPH-507 PO (08:43)
[2019-11-29 09:00] VITALS: BP 148/98
== END 2019-11-29 08:59 | disposition home or self-care (01) ==
LOC: EDUNIT# 07:00 → ER 07:02
DX: O98.512 Other viral diseases complicating pregnancy, second trimester (principal); B00.2 Herpesviral gingivostomatitis and pharyngotonsillitis; O99.512 Diseases of the respiratory system complicating pregnancy, second trimester; J02.9 Acute pharyngitis, unspecified; Z3A.16 16 weeks gestation of pregnancy
CPT/HCPCS: 99282

== ENCOUNTER 2020-03-11 20:22 | Outpatient (CLI) | payer MEDICAID ==
[~2020-03-11] VITALS: Ht 161 cm; Wt 114.9 kg
[~2020-03-11 20:22] MED LIST changes: +CEPH-507 PO; +Viscous Lidocaine PO
[2020-03-11 20:41] VITALS: BP 161/78
[2020-03-11 20:50] VITALS: BP 143/80
[2020-03-11 21:05] LABS: BILIRUBIN,URINE NEGATIVE (NEGATIVE); CLARITY,URINE CLEAR; COLOR,URINE YELLOW; GLUCOSE, URINE (UA) NEGATIVE (NEGATIVE); KETONES,URINE NEGATIVE (NEGATIVE); LEUKOCYTE ESTERASE ,URINE 2+ (NEGATIVE); NITRITE,URINE NEGATIVE (NEGATIVE); PROTEIN,URINE NEGATIVE (NEGATIVE)
[2020-03-11 21:10] VITALS: BP 123/70
[2020-03-11 21:20] LABS: BACTERIA,URINE FEW /HPF; WBC,URINE 25-50 /HPF
[2020-03-11 21:26] VITALS: BP 114/62
[2020-03-11 21:26] LABS: AMORPHOUS SEDIMENT,UR FEW AMOR URATES /LPF
[2020-03-11 21:40] VITALS: BP 143/80
[2020-03-11] MEDS ORDERED: LACTATED RINGERS 1,000 ML IV ONE (21:45)
[2020-03-11] MEDS ORDERED: cefTRIAXone 1,000 MG IV (ROCEPHIN) VIAL ONE (21:45)
[2020-03-11] MEDS ORDERED: cefTRIAXone FOR IV USE 1,000 MG in WATER (STERILE) FOR INJECTION 10 ML IV ONE (21:45)
[2020-03-11] MEDS ORDERED: WATER (STERILE) FOR INJECTION 10 ML ONE (21:45)
[2020-03-11] MEDS ORDERED: ACETAMINOPHEN 500 MG TAB (TYLENOL) ONE (22:38)
[2020-03-11] MEDS ORDERED: ACETAMINOPHEN 500 MG TAB (TYLENOL) PO PRN (22:45)
[2020-03-11] MEDS ORDERED: PREN-142 PO (23:18)
--- NOTE | 2020-03-11 23:25 | NUR ---
PAYTON GONZALES presented to unit via ambulation from ED, by self, with c/o CONTRACTIONS;LEAKING FLUID. PAYTON GONZALES weighed, gowned, voided, and to bed. EFHM and TOCO applied, VS taken. PAYTON GONZALES oriented to bed controls, call light, TV, heat, and A/C controls. Addendum: 03/11/20 at 2335 by JOSEFINA HINKLE RN Wrong time, admit time 2030
--- NOTE | 2020-03-11 23:25 | NUR ---
D/C instructions given & explained, pt. verbalized understanding & signed, copy of D/C instructions to pt. Instructed pt. to go to next sched appt w/Dr. Burch, may take tylenol, apply heat to back, take warm bath/shower. Pt. left WS ambulatory by self, to home via private vehicle.
--- NOTE | 2020-03-12 08:09 | Physician Query-Final Dx ---
KAYLIN PORTILLO 03/12/20 0809: Clinic Account Progress/Dx Physician Query: Please give diagnosis Please include # weeks gestation Date of Service Mar 11, 2020 at 20:22 ELVIRA PAYAN DO 03/13/20 0956: Clinic Account Progress/Dx DIAGNOSIS: Diagnosis 31 weeks GA UTI KAYLIN PORTILLO Mar 12, 2020 08:09 ELVIRA PAYAN DO Mar 13, 2020 09:56
== END 2020-03-11 23:25 | disposition home or self-care (01) ==
LOC: LDRP 20:22 → WSo 20:22
PROVIDERS: ATTEND Family Medicine
DX: O62.4 Hypertonic, incoordinate, and prolonged uterine contractions (principal); Z3A.31 31 weeks gestation of pregnancy
CPT/HCPCS: 81000; 87088; 96361; 96374; 99214

== ENCOUNTER 2021-07-30 14:49 | Emergency (ER) | payer MEDICAID ==
[~2021-07-30] VITALS: Ht 158 cm; Wt 91.0 kg
[~2021-07-30 14:49] MED LIST changes: +PREN-142 PO
--- NOTE | 2021-07-30 15:36 | ED General ---
General Chief Complaint: COVID19 Suspect/Confirmed Stated Complaint: COVID + HOME TEST/ELEV BP/SOA/STOMACHACHE/HEADACHE Nursing Triage Note: PT AMB TO RM 9 WITH C/O HIGH BLOOD PRESSURE AFTER TESTING POS FOR COVID LAST WEDNESDAY. SX STARTED LAST WEDNESDAY. PT ALSO C/O NAUSEA, DIARRIA AND COUGH Source of Information: Patient Exam Limitations: No Limitations History of Present Illness Date Seen by Provider: Jul 30, 2021 Time Seen by Provider: 15:25 Initial Comments Patient is a 25-year-old unvaccinated female who presents to the emergency room with a chief complaint of generalized malaise, weakness, mild shortness of breath, mild cough, upper respiratory congestion, nausea, decreased appetite, d iarrhea. She states she started having symptoms of Covid last , July 24. She did a home test on Wednesday that was positive. She had previously had close contact with her mfezmz-tv-fqy earlier in the week that was PCR positive. She has been taking nwny-sah-sbqorsl medications for her symptoms, Tylenol without much relief. She does endorse headache that will not go away. She feels a little lightheaded and dizzy. Her diarrhea has gotten a little better in the last 24 to 48 hours. She is taking some Imodium. But still every time she eats or drinks anything it "goes right through me". Patient states today she just felt worse and took her blood pressure and noted that it was extremely high. She was concerned about the numbers. No chest pain, confusion or altered mental status. No numbness tingling or weakness. She states she is urinating less frequently than normal. She takes medications for depression. She is not a smoker. She states her last menstrual period was a week and a half ago. She is not on control nor does she use condoms. Patient states she has previously had high blood pressure with third trimester . She is not on daily blood pressure medications All other review of systems reviewed and negative except as stated. Timing/Duration: 1 Week Severity: Mild Associated Systoms: Cough, Fever/Chills, Headaches, Loss of Appetite, Malaise, Nausea/Vomiting, Weakness, Other (diarrhea) Allergies and Home Medications Allergies Coded Allergies: No Known Drug Allergies (Unverified , 11/20/17) Patient Home Medication List Home Medication List Reviewed: Yes Vit No.124/Iron/FA ( Vitamin Tablet) 1 Each Tablet, 1 EACH PO DAILY, (Reported) Entered as Reported by: OJSEFINA HINKLE on 03/11/20 3491 Review of Systems Review of Systems Constitutional: see HPI EENTM: no symptoms reported Respiratory: cough, short of breath Cardiovascular: no symptoms reported Gastrointestinal: diarrhea, loss of appetite, nausea, vomiting Genitourinary: decreased output LMP: Jul 18, 2021 Musculoskeletal: muscle pain Skin: no symptoms reported Psychiatric/Neurological: Anxiety, Headache All Other Systems Reviewed Negative Unless Noted: Yes Past Dexzelm-Rlmqkn-Pkcxny Hx Patient Social History Tobacco Use?: No Substance use?: No Alcohol Use?: No Pt feels they are or have been: No Immunizations Up To Date Influenza Vaccine Up-to-Date: No; Not Current Past Medical History Surgery/Hospitalization HX: ANXIETY, DEPRESSION Surgeries: Yes Appendectomy, Gallbladder Respiratory: No Cardiac: No Neurological: No Last Menstrual Period: Jul 22, 2021 Female Reproductive Disorders: Denies Sexually Transmitted Disease: No HIV/AIDS: No Genitourinary: No Gastrointestinal: No Musculoskeletal: No Endocrine: No HEENT: No Hearing Impairment: Denies Cancer: No Psychosocial: No Integumentary: No Blood Disorders: No Family Medical History No Pertinent Family Hx Physical Exam Vital Signs Vital Signs - First Documented 07/30/21 15:00 Temp 36.4 Pulse 71 Resp 18 B/P (MAP) 182/115 (137) Pulse Ox 99 O2 Delivery Room Air Capillary Refill : Height, Weight, BMI Height: 5'2.00" Weight: 240lbs. oz. 108.230720jx; 36.00 BMI Method:Stated General Appearance: No Apparent Distress, WD/WN Eyes: Bilateral Eye Normal Inspection, Bilateral Eye PERRL, Bilateral Eye EOMI HEENT: PERRL/EOMI Neck: Normal Inspection Respiratory: Lungs Clear, Normal Breath Sounds, No Accessory Muscle Use, No Respiratory Distress Cardiovascular: Regular Rate, Rhythm (60-70's), Normal Peripheral Pulses Gastrointestinal: Normal Bowel Sounds, Non Tender, Soft Extremity: Normal Inspection, Normal Range of Motion, Non Tender, No Calf Tend erness Neurologic/Psychiatric: Alert, Oriented x3, No Motor/Sensory Deficits, Normal Mood/Affect Skin: Normal Color, Warm/Dry Progress/Results/Core Measures Suspected Sepsis SIRS Temperature: Pulse: 71 Respiratory Rate: 18 Laboratory Tests 07/30/21 15:13: White Blood Count 4.3 Blood Pressure 182 /115 Mean: 137 Laboratory Tests 07/30/21 15:13: Creatinine 0.67, Platelet Count 145 Results/Orders Lab Results Laboratory Tests Test 07/30/21 15:13 Range/Units White Blood Count 4.3 4.3-11.0 10^3/uL Red Blood Count 4.51 3.80-5.11 10^6/uL Hemoglobin 13.7 11.5-16.0 g/dL Hematocrit 40 35-52 % Mean Corpuscular Volume 88 80-99 fL Mean Corpuscular Hemoglobin 30 25-34 pg Mean Corpuscular Hemoglobin Concent 35 32-36 g/dL Red Cell Distribution Width 12.0 10.0-14.5 % Platelet Count 145 130-400 10^3/uL Mean Platelet Volume 10.5 9.0-12.2 fL Immature Granulocyte % (Auto) 0 % Neutrophils (%) (Auto) 53 42-75 % Lymphocytes (%) (Auto) 40 12-44 % Monocytes (%) (Auto) 4 0-12 % Eosinophils (%) (Auto) 3 0-10 % Basophils (%) (Auto) 0 0-10 % Neutrophils # (Auto) 2.3 1.8-7.8 X 10^3 Lymphocytes # (Auto) 1.7 1.0-4.0 X 10^3 Monocytes # (Auto) 0.2 0.0-1.0 X 10^3 Eosinophils # (Auto) 0.1 0.0-0.3 10^3/uL Basophils # (Auto) 0.0 0.0-0.1 10^3/uL Immature Granulocyte # (Auto) 0.0 0.0-0.1 10^3/uL Sodium Level 140 135-145 MMOL/L Potassium Level 3.7 3.6-5.0 MMOL/L Chloride Level 109 H 98-107 MMOL/L Carbon Dioxide Level 21 21-32 MMOL/L Anion Gap 10 5-14 MMOL/L Blood Urea Nitrogen 6 L 7-18 MG/DL Creatinine 0.67 0.60-1.30 MG/DL Estimat Glomerular Filtration Rate 124 BUN/Creatinine Ratio 9 Glucose Level 108 H 70-105 MG/DL Calcium Level 8.8 8.5-10.1 MG/DL Serum Test, Qualitative NEGATIVE NEGATIVE My Orders Orders - CAMERON LINDQUIST MD Ed Iv/Invasive Line Start (07/30/21 15:32) Cbc With Automated Diff (07/30/21 15:32) Basic Metabolic Panel (07/30/21 15:32) Hcg,Qualitative Serum (07/30/21 15:32) Ns Iv 1000 Ml (Sodium Chloride 0.9%) (07/30/21 15:45) Ondansetron Injection (Zofran Injectio (07/30/21 15:45) Covid-19 External Lab Results (07/30/21 15:36) Isolation Central Supply Req (07/30/21 15:36) Medications Given in ED Current Medications Medications Dose Ordered Sig/[place] Route Start Time Stop Time Status Last Admin Dose Admin Ketorolac Tromethamine 15 mg ONCE ONCE IVP 07/30/21 16:30 07/30/21 16:31 DC 07/30/21 16:33 15 MG Ondansetron HCl 4 mg ONCE ONCE IVP 07/30/21 15:45 07/30/21 15:46 DC 07/30/21 15:54 4 MG Vital Signs/I&O 07/30/21 15:00 Temp 36.4 Pulse 71 Resp 18 B/P (MAP) 182/115 (137) Pulse Ox 99 O2 Delivery Room Air Capillary Refill : Blood Pressure Mean: 137 Progress Note : Time: 16:35 Progress Note Fluids are complete, labs are completed as well. They are very reassuring with no glaring abnormalities. Her test is negative. I advised the patient to follow-up with her primary care physician regarding possible treatment of elevated blood pressure. She does not have any signs or symptoms of endorgan damage at this point. I feel like she is safe to discharge home. She does not have any concerning complaints with respect to chest pain/ACS, severe headache or neurologic complaints concerning stroke, renal function is normal. She is given good return precautions she verbalized understanding and is comfortable with plan of care Departure Impression Primary Impression: COVID-19 Additional Impression: High blood pressure Qualified Codes: I10 - Essential (primary) hypertension Disposition: 01 HOME, SELF-CARE Condition: Stable Departure-Patient Inst. Referrals: NO,LOCAL PHYSICIAN (PCP/Family) Primary Care Physician Patient Instructions: COVID-19 Overview Add. Discharge Instructions: Drink plenty of fluids to stay well-hydrated. Zofran 4mg, every 8 hours as needed for nausea. Avoid caffeine products and modu-jhp-eutozrs decongestants while your blood pressure is running a little higher than normal. Please call your primary care physician's office for a follow-up appointment once you are clear of Covid, 10 days after symptom onset. You can take ficw-uxt-vhluecq Tylenol or ibuprofen as needed for body aches and pains. Mucinex for congestion. Return to the emergency department for any new, concerning or emergent complaints. Scripts Ondansetron (Ondansetron Odt) 4 Mg Tab.rapdis 4 MG PO Q8H PRN for nausea, #20 TAB Prov: CAMERON LINDQUIST MD 07/30/21 CAMERON LINDQUIST MD Jul 30, 2021 15:36
[2021-07-30 15:38] LABS: BASOPHILS % (AUTO) 0 % (0-10); EOSINOPHILS # (AUTO) 0.1 10^3/uL (0.0-0.3); EOSINOPHILS % (AUTO) 3 % (0-10); HEMATOCRIT 40 % (35-52); HEMOGLOBIN 13.7 g/dL (11.5-16.0); LYMPHOCYTES # (AUTO) 1.7 X 10^3 (1.0-4.0); LYMPHOCYTES % (AUTO) 40 % (12-44); MEAN CORPUSCULAR HEMOGLOBIN 30 pg (25-34); MEAN CORPUSCULAR HGB CONC 35 g/dL (32-36); MEAN CORPUSCULAR VOLUME 88 fL (80-99); MEAN PLATELET VOLUME 10.5 fL (9.0-12.2); MONOCYTES # (AUTO) 0.2 X 10^3 (0.0-1.0); MONOCYTES % (AUTO) 4 % (0-12); NEUTROPHILS # (AUTO) 2.3 X 10^3 (1.8-7.8); NEUTROPHILS % (AUTO) 53 % (42-75); PLATELET COUNT 145 10^3/uL (130-400); WHITE BLOOD COUNT 4.3 10^3/uL (4.3-11.0)
[2021-07-30 15:42] LABS: POTASSIUM 3.7 MMOL/L (3.6-5.0)
[2021-07-30 15:43] LABS: CALCIUM 8.8 MG/DL (8.5-10.1)
[2021-07-30] MEDS ORDERED: ONDANSETRON 4 MG/2 ML (SDV) Z0FRAN IVP ONE (15:45)
[2021-07-30] MEDS ORDERED: NS IV 1000 ML 1,000 ML IV SCH (15:45)
[2021-07-30 15:48] LABS: CREATININE SERUM 0.67 MG/DL (0.60-1.30)
[2021-07-30] MEDS ORDERED: KETOROLAC 30 MG/ML VIAL IVP ONE (16:30)
[2021-07-30] MEDS ORDERED: ONDA4TAB11 PO (16:38)
[2021-07-30 17:34] VITALS: BP 146/97
== END 2021-07-30 17:35 | disposition home or self-care (01) ==
LOC: EDUNIT# 14:49 → ER 14:51
DX: U07.1 COVID-19 (principal); I10 Essential (primary) hypertension; F32.9 Major depressive disorder, single episode, unspecified; Z79.899 Other long term (current) drug therapy
CPT/HCPCS: 36415; 80048; 84703; 85025

== ENCOUNTER 2023-02-03 22:53 | Emergency (ER) | payer MEDICAID ==
[~2023-02-03] VITALS: Ht 160 cm; Wt 97.5 kg
[~2023-02-03 22:53] MED LIST changes: +ONDA4TAB11 PO
[2023-02-04] MEDS ORDERED: NS 100 ML (IVPB) BAG IV ONE
[2023-02-04] MEDS ORDERED: IOHEXOL 350 MG/ML 100 ML (OMNIPAQUE 350) VIAL IV ONE
[2023-02-04] MEDS ORDERED: HOLD METFORMIN - RECEIVED CONTRAST 20 ML VIAL IV SCH
[2023-02-04 00:06] LABS: BASOPHILS % (AUTO) 0 % (0-10); EOSINOPHILS # (AUTO) 0.3 10^3/uL (0.0-0.3); EOSINOPHILS % (AUTO) 3 % (0-10); HEMATOCRIT 38 % (35-52); HEMOGLOBIN 12.7 g/dL (11.5-16.0); LYMPHOCYTES # (AUTO) 2.5 10^3/uL (1.0-4.0); LYMPHOCYTES % (AUTO) 24 % (12-44); MEAN CORPUSCULAR HEMOGLOBIN 31 pg (25-34); MEAN CORPUSCULAR HGB CONC 34 g/dL (32-36); MEAN CORPUSCULAR VOLUME 92 fL (80-99); MEAN PLATELET VOLUME 10.6 fL (9.0-12.2); MONOCYTES # (AUTO) 0.6 10^3/uL (0.0-1.0); MONOCYTES % (AUTO) 6 % (0-12); NEUTROPHILS # (AUTO) 6.8 10^3/uL (1.8-7.8); NEUTROPHILS % (AUTO) 66 % (42-75); PLATELET COUNT 168 10^3/uL (130-400); WHITE BLOOD COUNT 10.3 10^3/uL (4.3-11.0)
--- NOTE | 2023-02-04 00:14 | ED EENT ---
History of Present Illness General Chief Complaint: Oral/Throat Problems Stated Complaint: SORE THROAT Nursing Triage Note: PT AMB TO ED BY POV WITH C/O SORE THROAT. PT REPORTS SHE TESTED POSITIVE FOR STREP THROAT YESTERDAY AT [facility] AND WAS STARTED ON ANTIBIOTICS YESTERDAY. PT REPORTS PAIN HAS GOTTEN WORSE. DENIES FEVER. Source: patient History of Present Illness Date Seen by Provider: Feb 03, 2023 Time Seen by Provider: 23:35 Initial Comments PT ARRIVES VIA POV FROM HOME PT STATES SHE HAS HAD A COUGH X 1 WEEK, AND SORE THROAT FOR THE LAST 3-4 DAYS NO FEVER PT WAS SEEN AT [facility] YESTERDAY AND TESTED + FOR STREP AND WAS PLACED ON AUGMENTIN PT STATES THAT SHE WAS TOLD "IF HER SYMPTOMS WERE NOT BETTER AFTER 2 DOSES OF MEDICATION, THEN SHE SHOULD GO TO ER" PT STATES HER THROAT IS "WAY WORSE" AND BECOMING MORE PAINFUL--IS WORSE ON THE RIGHT NO PROBLEMS HANDLING SECRETIONS OR FLUIDS. PT TOOK 2 TYLENOL AT 2100 AND 3 IBUPROFEN AT 1600 TODAY WITHOUT RELIEF SHE GETS "STREP" 1-2 TIMES A YEAR HAS HTN, NO OTHER CHRONIC MEDICAL PROBLEMS LMP--3 WEEKS AGO, NORMAL. NO CONTROL. PCP: DR. MARTINEZ IN [place] Allergies and Home Medications Allergies Coded Allergies: No Known Drug Allergies (Unverified , 11/20/17) Patient Home Medication List Home Medication List Reviewed: Yes Ondansetron (Ondansetron Odt) 4 Mg Tab.rapdis, 4 MG PO Q8H PRN for nausea Prescribed by: CAMERON LINDQUIST on 07/30/21 1638 Prednisone (Prednisone) 20 Mg Tab, 40 MG PO DAILY Prescribed by: OLLIE ORTIZ on 02/04/23 0135 Vit No.124/Iron/FA ( Vitamin Tablet) 1 Each Tablet, 1 EACH PO DAILY, (Reported) Entered as Reported by: JOSEFINA HINKLE on 03/11/20 2318 Review of Systems Review of Systems Constitutional: no symptoms reported Nose: no symptoms reported Mouth: no symptoms reported Throat: see HPI Respiratory: no symptoms reported Cardiovascular: no symptoms reported Gastrointestinal: no symptoms reported LMP: Jan 14, 2023 Musculoskeletal: no symptoms reported Skin: no symptoms reported Neurological: No Symptoms Reported Hematologic/Lymphatic: No Symptoms Reported Immunological/Allergic: no symptoms reported Past Aivvupp-Xcphrt-Vloxte Hx Patient Social History Tobacco Use?: No Use of E-Cig and/or Vaping dev: No Substance use?: No Alcohol Use?: No Pt feels they are or have been: No Immunizations Up To Date Influenza Vaccine Up-to-Date: No; Not Current First/Initial COVID19 Vaccinat: DENIES Past Medical History Surgery/Hospitalization HX: HTN, ANXIETY, DEPRESSION APPE, PALLAVI Surgeries: Yes Appendectomy, Gallbladder Respiratory: No Cardiac: Yes Hypertension Neurological: No Female Reproductive Disorders: Denies Sexually Transmitted Disease: No HIV/AIDS: No Genitourinary: No Gastrointestinal: No Musculoskeletal: No Endocrine: No HEENT: No Hearing Impairment: Denies Cancer: No Psychosocial: Yes Anxiety, Depression Integumentary: No Blood Disorders: No Family Medical History No Pertinent Family Hx Physical Exam Vital Signs Vital Signs - First Documented 02/03/23 22:59 Temp 36.6 Pulse 88 Resp 16 B/P (MAP) 163/101 (121) Pulse Ox 97 O2 Delivery Room Air Height, Weight, BMI Height: 5'2.00" Weight: 240lbs. oz. 108.151871yk; 38.00 BMI Method:Stated General Appearance: WD/WN, no apparent distress, other (DOES NOT APPEAR TO BE ILL OR IN ANY DISCOMFORT OR DISTRESS) Eyes: bilateral eye normal inspection, bilateral eye PERRL, bilateral eye EOMI Ears: bilateral ear TM normal Nose: normal inspection Mouth/Throat: No excessive drooling; tonsillar exudate, tonsillar swelling; No trismus, No uvula swelling, No voice changes; other (RIGHT TONSIL + 3 IN SIZE, LEFT TONSIL +1-2 IN SIZE. EXTENSIVE EXUDATES BILATERALLY. SOME PRETONSILLAR PILLAR FULLNESS ON THE RIGHT . UVULA IS MIDLINE. VOICE IS NOT MUFFLED. PT IS ABLE TO HANDLE SECRETIONS. ) Neck: normal inspection Cardiovascular: regular rate, rhythm, no murmur Respiratory: normal breath sounds, no respiratory distress, no accessory muscle use Gastrointestinal: non tender, soft, no organomegaly Neurologic/Psychiatric: national investigative producer II-XII nml as tested, no motor/sensory deficits, alert, normal mood/affect, oriented x 3 Skin: normal color, warm/dry; No rash Progress/Results/Core Measures Results/Orders Lab Results Laboratory Tests Test 02/03/23 23:52 Range/Units White Blood Count 10.3 4.3-11.0 10^3/uL Red Blood Count 4.08 3.80-5.11 10^6/uL Hemoglobin 12.7 11.5-16.0 g/dL Hematocrit 38 35-52 % Mean Corpuscular Volume 92 80-99 fL Mean Corpuscular Hemoglobin 31 25-34 pg Mean Corpuscular Hemoglobin Concent 34 32-36 g/dL Red Cell Distribution Width 12.9 10.0-14.5 % Platelet Count 168 130-400 10^3/uL Mean Platelet Volume 10.6 9.0-12.2 fL Immature Granulocyte % (Auto) 0 % Neutrophils (%) (Auto) 66 42-75 % Lymphocytes (%) (Auto) 24 12-44 % Monocytes (%) (Auto) 6 0-12 % Eosinophils (%) (Auto) 3 0-10 % Basophils (%) (Auto) 0 0-10 % Neutrophils # (Auto) 6.8 1.8-7.8 10^3/uL Lymphocytes # (Auto) 2.5 1.0-4.0 10^3/uL Monocytes # (Auto) 0.6 0.0-1.0 10^3/uL Eosinophils # (Auto) 0.3 0.0-0.3 10^3/uL Basophils # (Auto) 0.0 0.0-0.1 10^3/uL Immature Granulocyte # (Auto) 0.0 0.0-0.1 10^3/uL Sodium Level 140 135-145 MMOL/L Potassium Level 3.6 3.6-5.0 MMOL/L Chloride Level 109 H 98-107 MMOL/L Carbon Dioxide Level 24 21-32 MMOL/L Anion Gap 7 5-14 MMOL/L Blood Urea Nitrogen 9 7-18 MG/DL Creatinine 0.74 0.60-1.30 MG/DL Estimat Glomerular Filtration Rate 113 BUN/Creatinine Ratio 12 Glucose Level 94 70-105 MG/DL Calcium Level 9.6 8.5-10.1 MG/DL Corrected Calcium 9.4 8.5-10.1 MG/DL Total Bilirubin 0.4 0.1-1.0 MG/DL Aspartate Amino Transf (AST/SGOT) 15 5-34 U/L Alanine Aminotransferase (ALT/SGPT) 19 0-55 U/L Alkaline Phosphatase 73 40-136 U/L Total Protein 7.9 6.4-8.2 GM/DL Albumin 4.3 3.2-4.5 GM/DL Serum Test, Qualitative NEGATIVE NEGATIVE Monoscreen NEGATIVE NEGATIVE My Orders Orders - OLLIE ORTIZ DO Ed Iv/Invasive Line Start (02/03/23 23:48) Ct Neck (Soft Tissue) W (02/03/23 23:48) Cbc With Automated Diff (02/03/23 23:48) Comprehensive Metabolic Panel (02/03/23 23:48) Hcg,Qualitative Serum (02/03/23 23:48) Monotest (02/03/23 23:48) Ed Iv/Invasive Line Start (02/03/23 23:48) Iohexol Injection (Omnipaque 350 Mg/Ml 1 (02/04/23 00:00) Received Contrast (Hold Metformin- Contr (02/04/23 00:00) Ns (Ivpb) 100 Ml (Sodium Chloride 0.9% 1 (02/04/23 00:00) Medications Given in ED Current Medications Medications Dose Ordered Sig/[place] Route Start Time Stop Time Status Last Admin Dose Admin Iohexol 100 ml ONCE ONCE IV 02/04/23 00:00 02/04/23 00:01 DC 02/04/23 00:32 75 ML Sodium Chloride 100 ml ONCE ONCE IV 02/04/23 00:00 02/04/23 00:01 DC 02/04/23 00:32 100 ML Vital Signs/I&O 02/03/23 22:59 Temp 36.6 Pulse 88 Resp 16 B/P (MAP) 163/101 (121) Pulse Ox 97 O2 Delivery Room Air Blood Pressure Mean: 121 Progress Progress Note : Progress Note LABS: CBC IS NORMAL, WITH WBC 10.3 CMP IS NORMAL MONO TEST IS NEGATIVE CT NECK SOFT TISSUES DOES NOT REPORT ANY ABSCESS VITALS STABLE, PT IS AFEBRILE DISCUSSED TEST RESULTS, ANTICIPATED COURSE, SYMPTOMATIC TREATMENT, MEDICATIONS, NEED FOR FOLLOW UP AND RETURN PRECAUTIONS Diagnostic Imaging Comments CT NECK SOFT TISSUES--PER [facility] VIA FAX AT 0129 -ENLARGED BILATERAL TONSILS AND BILATERAL CERVICAL LYMPH NODES -NO ABSCESS Reviewed: Reviewed by Me Departure Impression Primary Impression: Streptococcal tonsillitis Disposition: HOME, SELF-CARE Condition: Stable Departure-Patient Inst. Decision time for Depature: 01:33 Referrals: NO,LOCAL PHYSICIAN (PCP) Primary Care Physician Patient Instructions: Strep Throat ED Add. Discharge Instructions: LOTS OF CLEAR LIQUIDS--WATER, BROTH, JELLO, GATORADE FREQUENT SALT WATER GARGLES TAKE TYLENOL 1 GRAM PLUS MOTRIN 800 MG 4 TIMES A DAY FOR PAIN OR FEVER DOUBLE YOUR DOSE OF AUGMENTIN TO 2 PILLS TWICE A DAY FOLLOW UP WITH [facility] OR YOUR REGULAR DR IN 3 DAYS FOR RECHECK--THEY CAN DECIDE AT THAT TIME IF YOU NEED ADDITIONAL MEDICATION OR A DIFFERENT MEDICATION RETURN TO ER IF SYMPTOMS WORSEN All discharge instructions reviewed with patient and/or family. Voiced understanding. Scripts Prednisone (Prednisone) 20 Mg Tab 40 MG PO DAILY, #6 TAB 0 Refills Prov: OLLIE ORTIZ DO 02/04/23 OLLIE ORTIZ DO Feb 04, 2023 00:14
[2023-02-04 00:16] LABS: ALBUMIN 4.3 GM/DL (3.2-4.5); POTASSIUM 3.6 MMOL/L (3.6-5.0)
[2023-02-04 00:17] LABS: CALCIUM 9.6 MG/DL (8.5-10.1)
[2023-02-04 00:18] LABS: TOTAL PROTEIN 7.9 GM/DL (6.4-8.2)
[2023-02-04 00:20] LABS: BILIRUBIN,TOTAL 0.4 MG/DL (0.1-1.0)
[2023-02-04 00:22] LABS: CREATININE SERUM 0.74 MG/DL (0.60-1.30)
[2023-02-04] MEDS ORDERED: PRD20T PO (01:35)
[2023-02-04 01:38] VITALS: BP 140/98
--- NOTE | 2023-02-04 07:26 | Diagnostic Imaging Report ---
PROCEDURE: CT neck soft tissue with contrast. TECHNIQUE: Multiple contiguous axial images were obtained through the neck after the administration of contrast. Auto Exposure Controls were utilized during the CT exam to meet ALARA standards for radiation dose reduction. INDICATION: Throat swelling. COMPARISON: None available. FINDINGS: The bilateral palatine tonsils are mildly enlarged. However, there are no peritonsillar fluid collections to indicate abscess. Airway remains widely patent. Bilateral enlarged level 2B lymph nodes are likely reactive in nature due to tonsillitis. No retropharyngeal fluid collection. The thyroid, bilateral submandibular and parotid glands are normal. Paranasal sinuses have no air-fluid levels. Visualized orbits are unremarkable. No concerning abnormality within the cervical spine. IMPRESSION: 1. Enlarged bilateral palatine tonsils are likely due to tonsillitis. No peritonsillar abscess. 2. Enlarged reactive bilateral cervical lymph nodes. 3. Findings are in agreement with the preliminary report. Dictated by: Dictated on workstation # [id number]
== END 2023-02-04 01:41 | disposition home or self-care (01) ==
LOC: EDUNIT# 22:53 → ER 22:55
DX: J03.00 Acute streptococcal tonsillitis, unspecified (principal)
CPT/HCPCS: 36415; 70491; 80053; 84703; 85025; 86308